=== PATIENT | female | born 1970 | race Caucasian/White ===

== ENCOUNTER 2018-10-24 06:28 | Day surgery (SDC) | payer OTHER ==
[2018-10-24] MEDS ORDERED: Sodium Bicarbonate 8.4% IV* 50 ML VIAL ONE (07:22)
[2018-10-24] MEDS ORDERED: Lidocain 1% EPI 1:100,000 * 30 ML MDV ONE (07:22)
[2018-10-24] MEDS ORDERED: Lidocaine 1% MPF wEPI 200,000* 30 ML SDV ONE (07:23)
[2018-10-24] MEDS ORDERED: Bupivacaine 0.25% SDV* 30 ML ONE (09:23)
[2018-10-24 09:50] VITALS: BP 108/67
--- NOTE | 2018-10-24 11:36 | OP ---
DATE OF OPERATION: 10/24/18 [facility] DATE OF : 66 SURGEON: Tejas Quinones MD BED CONTROL SPECIALIST: None. ANESTHESIOLOGIST: None. ANESTHESIA: Local only with 1% lidocaine with epinephrine and bicarbonate. PRE-OP DIAGNOSIS: Right carpal tunnel syndrome. POST-OP DIAGNOSIS: Right carpal tunnel syndrome. OPERATIVE PROCEDURE: Right open carpal tunnel release. INDICATIONS: Melissa is 48. She has pretty severe right carpal tunnel syndrome. We had talked about her treatment options. She had wanted to proceed with carpal tunnel release. ESTIMATED BLOOD LOSS: 5 mL. COMPLICATIONS: None. FINDINGS: See above and below. DESCRIPTION OF PROCEDURE: Melissa was seen in the preoperative holding area. The correct side, site and procedure were identified. We had a time-out. Then, I infiltrated the operative area with 1% lidocaine with epinephrine and bicarbonate. A while later, we came back to the operating room and the arm was prepped and draped in the usual fashion and time-out was performed. I made a 2 to 3 cm longitudinal incision in the proximal palm. Dissection was carried down through subcutaneous tissue and palmar fascia. The transverse carpal ligament was released just off the radial aspect of the hook of the hamate. The release was completed distally and then proximally. I released the fascia and subcutaneous tissue and retracted that of the way and released the remainder of the transverse carpal ligament and distal antebrachial fascia with tenotomy scissors. At this point, I confirmed the decompression. The nerve did look very irritated. I irrigated out the wounds. The skin was closed with 4-0 nylon suture. Soft dressings were applied and she was taken to the recovery room in stable condition. [id number]/[facility] #: [id number] MTDD
== END 2018-10-24 09:58 | disposition home or self-care (01) ==
LOC: OREAST 06:28
PROVIDERS: ATTEND Orthopaedic Surgery Hand Surgery
DX: G56.01 Carpal tunnel syndrome, right upper limb (principal); Z72.0 Tobacco use
CPT/HCPCS: J2001; J3490

== ENCOUNTER 2018-11-14 06:48 | Day surgery (SDC) | payer OTHER ==
[~2018-11-14 06:48] MED LIST: Buffered Lidocaine 1% SYRIN* 1 ML/SYRINGE INTRADERM ONE; Lactated Ringers 1000 ML Bag* 1,000 ML IV SCH; Sodium Citrate/Citric Acid* 15 ML UDC PO ONE
[2018-11-14] MEDS ORDERED: Bupivacaine 0.25% SDV PF* 10 ML VIAL INJ ONE (08:14)
[2018-11-14 09:06] VITALS: BP 133/79
--- NOTE | 2018-11-14 13:22 | OP ---
DATE OF OPERATION: 11/14/18 [facility] DATE OF : 66 SURGEON: Tejas Quinones MD FLUE [employer]LE [employer] OPERATOR: NEDA Singh ANESTHESIOLOGIST: None. ANESTHESIA: Local only with 1% lidocaine with epinephrine and bicarbonate. PRE-OP DIAGNOSIS: Left carpal tunnel syndrome. POST-OP DIAGNOSIS: Left carpal tunnel syndrome. OPERATIVE PROCEDURE: Left open carpal tunnel release. INDICATIONS: Melissa has bilateral carpal tunnel release done on the right, she presents now for the left. She understands the risks associated with any procedure. ESTIMATED BLOOD LOSS: 5 mL COMPLICATIONS: None. FINDINGS: See above and below. DESCRIPTION OF PROCEDURE: Melissa was seen in the preoperative holding area. The correct side, site, and procedure were identified. We came back to the operating room where the arm was prepped and draped in the usual fashion. A time-out was performed. In the preoperative area after the time-out, I had injected the operative area with 1% lidocaine with epinephrine and bicarbonate. I began by making a 2 to 3 cm incision longitudinally in the proximal thumb. Dissection was carried down through the subcutaneous tissue and palmar fascia. A self-retaining retractor was placed. I then released the transverse carpal ligament just off the radial aspect of the hook of the hamate. The release was completed distally with the tenotomy scissors. Proximally, I released the subcutaneous tissue and fascia and retracted that out of the way and then released the remainder of the transverse carpal ligament and distal antebrachial fascia with the tenotomy scissors. I then confirmed the release. Everything was looking good, so we irrigated out the wound. Skin was closed with 4-0 nylon suture and then we injected little bit more 0.25% plain Marcaine. Wound was dressed with soft dressing and she was taken to the recovery room in stable condition. [id number]/[facility] #: [id number] [facility]
== END 2018-11-14 09:08 | disposition home or self-care (01) ==
LOC: OREAST 06:48
PROVIDERS: ATTEND Orthopaedic Surgery Hand Surgery
DX: G56.02 Carpal tunnel syndrome, left upper limb (principal); Z72.0 Tobacco use
CPT/HCPCS: J3490